=== PATIENT | male | born 1960 | race Caucasian/White ===

== ENCOUNTER → 2021-01-29 | Outpatient (CLI) | payer OTHER ==
[~2021-01-29] MED LIST: BENTYL 20MG TAB20 MG PO; LODINE CAP 300300 MG PO; NORFLEX 100 MG100 MG PO; PREDNISONE 50 M50 MG PO; Voltaren Gel 1 % TOP; ZOFRAN ODT 4 MG4 MG PO
== END ==
LOC: NM 08:35
DX: R93.7 Abnormal findings on diagnostic imaging of other parts of musculoskeletal system (principal); M47.816 Spondylosis without myelopathy or radiculopathy, lumbar region
CPT/HCPCS: 78315; A9503

== ENCOUNTER 2021-07-03 01:01 | Emergency (ER) | payer OTHER ==
[2021-07-03] MEDS ORDERED: IBUPROFEN600 MG PO (04:21)
== END 2021-07-03 05:13 | disposition home or self-care (01) ==
LOC: ER1 01:01
DX: S43.102A Unspecified dislocation of left acromioclavicular joint, initial encounter (principal); S20.212A Contusion of left front wall of thorax, initial encounter; Z88.8 Allergy status to other drugs, medicaments and biological substances; F17.210 Nicotine dependence, cigarettes, uncomplicated; W18.2XXA Fall in (into) shower or empty bathtub, initial encounter
CPT/HCPCS: 71045; 73030; 73564; 96372; 99283; J1885